=== PATIENT | male | born 1995 | race African-American/Black ===

== ENCOUNTER 2021-05-03 20:27 | Emergency (ER) | payer OTHER ==
[~2021-05-03] VITALS: Ht 182.9 cm; Wt 84.1 kg
[2021-05-03] MEDS ORDERED: NEOSPORIN OINT 0.9 GM PKT TOP ONE (21:15)
[2021-05-03 21:34] VITALS: BP 150/88
== END 2021-05-03 21:36 | disposition home or self-care (01) ==
LOC: M ED 20:27
DX: S61.210A Laceration without foreign body of right index finger without damage to nail, initial encounter (principal); W22.8XXA Striking against or struck by other objects, initial encounter; Y92.9 Unspecified place or not applicable; Y93.9 Activity, unspecified; Y99.1 Military activity

== ENCOUNTER 2021-05-17 13:31 | Emergency (ER) | payer OTHER ==
[~2021-05-17] VITALS: Ht 182.9 cm; Wt 90.9 kg
[2021-05-17 13:47] VITALS: BP 145/87
[2021-05-17] MEDS ORDERED: IBUPROFEN 800 MG TAB PO ONE (16:55)
[2021-05-17] MEDS ORDERED: CEPHALEXIN SUSP POWDER 250MG/5ML BTL 100ML PO ONE (16:55)
[2021-05-17] MEDS ORDERED: CEPHALEXIN 500 MG CAP PO ONE (17:00)
[2021-05-17] MEDS ORDERED: CEPH500C PO (17:49)
== END 2021-05-17 17:58 | disposition home or self-care (01) ==
LOC: M ED 13:31
DX: S61.431A Puncture wound without foreign body of right hand, initial encounter (principal); W45.0XXA Nail entering through skin, initial encounter; Y92.9 Unspecified place or not applicable; Y93.9 Activity, unspecified; Y99.0 Civilian activity done for income or pay

== ENCOUNTER → 2023-05-08 | Outpatient (CLI) | payer OTHER ==
[~2023-05-08] MED LIST: CEPH500C PO
== END ==
LOC: M SLEEP 20:00
PROVIDERS: ATTEND Nurse Practitioner Family
DX: G47.33 Obstructive sleep apnea (adult) (pediatric) (principal)